=== PATIENT | female | born 1960 | race Caucasian/White ===

== ENCOUNTER 2017-08-20 12:51 | Emergency (ER) | payer OTHER ==
[2017-08-20 12:51] VITALS: BMI 24.7
[2017-08-20 13:01] VITALS: BP 114/51; PULSE 84; RESP 18; TEMP 99; O2SAT 100
[2017-08-20] MEDS ORDERED: Albuterol-Ipratrop 3 mg / 0.5 (3 ml) UD INH STA (13:36)
--- NOTE | 2017-08-20 13:38 | ED PDOC ---
HPI: CCC, URI, Sore Throat Time Seen by Provider: 08/20/17 13:16 Chief Complaint (Nursing): Cough, Cold, Congestion Chief Complaint (Provider): Cough, fever, chills History Per: Patient History/Exam Limitations: no limitations Onset/Duration Of Symptoms: Other (1 month) Additional Complaint(s): Patient is a 56 y/o female with a past medical history of asthma presenting to the emergency department for a productive cough ongoing intermittently for over a month. Also reports developing a fever and chills four days ago. Patient was seen by PMD and started taking Tamiflu two days ago with no significant relief of symptoms. Denies any other complaints. Of note, patient did receive flu shot this year. PCP: Dr. Alvarez Past Medical History Reviewed: Historical Data, Nursing Documentation, Vital Signs Vital Signs: Last Vital Signs Temp 99 F 08/20/17 12:59 Pulse 84 08/20/17 12:59 Resp 18 08/20/17 12:59 BP 114/51 L 08/20/17 12:59 Pulse Ox 100 08/20/17 14:21 - Medical History PMH: Arthritis (KNEES), Asthma - Surgical History Surgical History: No Surg Hx - Family History Family History: States: No Known Family Hx - Living Arrangements Living Arrangements: With Family - Social History Current smoker - smoking cessation education provided: No Alcohol: None Drugs: Denies - Home Medications Home Medications: Ambulatory Orders Medication Instructions Recorded Bronopol 250 mg PO DAILY 04/09/14 Calcium With Vit D 600 mg PO DAILY 04/09/14 Diosmiplex 630 mg PO DAILY 04/09/14 Menovin 1 tab PO DAILY 04/09/14 Mesalamine [Asacol HD 800mg] 800 mg PO DAILY 04/09/14 Omeprazole [Omeprazole D/R] 40 mg PO DAILY 04/09/14 Vitamin E Succinate [Alph-E-400] 400 iu PO DAILY 04/09/14 predniSONE 5 mg PO DAILY 04/09/14 Cyclobenzaprine HCl [Flexeril] 10 mg PO BID PRN #12 tab 01/14/15 Ibuprofen [Motrin Tab] 800 mg PO Q8H PRN #20 tab 01/14/15 Ibuprofen [Motrin Tab] 800 mg PO Q6H PRN #20 tab 03/04/15 Albuterol HFA [Ventolin HFA 90 1 puff IH ASDIR #1 unit 08/20/17 mcg/actuation (8 g)] Benzonatate 200 mg PO TID PRN #20 capsule 08/20/17 Levofloxacin [Levaquin] 500 mg PO DAILY #7 tablet 08/20/17 Prednisone 50 mg PO DAILY #5 tablet 08/20/17 - Allergies Allergies/Adverse Reactions: Allergies Allergy/AdvReac Type Severity Reaction Status Date / Time No Known Allergies Allergy Verified 08/20/17 12:58 Curb-65 Severity Score - CURB-65 Severity Score Confusion: No Respiratory Rate greater than/equal to 30: No Systolic BP <90 or Diastolic BP less than/equal 60mmHg: No Age >64: No Curb-65 Score: 0 Percentage 30-day mortality: 0.6% Review of Systems ROS Statement: Except As Marked, All Systems Reviewed And Found Negative Constitutional: Positive for: Fever (subjective), Chills Cardiovascular: Negative for: Chest Pain Respiratory: Positive for: Cough, Sputum (white), Wheezing Gastrointestinal: Negative for: Nausea, Vomiting Neurological: Negative for: Headache, Dizziness Physical Exam - Reviewed Nursing Documentation Reviewed: Yes Vital Signs Reviewed: Yes - Physical Exam Appears: Positive for: Non-toxic, No Acute Distress Head Exam: Positive for: ATRAUMATIC, NORMAL INSPECTION, NORMOCEPHALIC Skin: Positive for: Normal Color, Warm, Dry Eye Exam: Positive for: Normal appearance ENT: Negative for: Pharyngeal Erythema Neck: Positive for: Normal Cardiovascular/Chest: Positive for: Regular Rate, Rhythm Respiratory: Positive for: Wheezing (bilaterally). Negative for: Normal Breath Sounds, Accessory Muscle Use, Respiratory Distress Back: Negative for: L CVA Tenderness, R CVA Tenderness Extremity: Positive for: Normal ROM. Negative for: Pedal Edema Neurologic/Psych: Positive for: Alert, Oriented (x3) - ECG O2 Sat by Pulse Oximetry: 100 (RA) Pulse Ox Interpretation: Normal - Other Rad CXR X-Ray: Interpreted by Me, Viewed By Me X-Ray Interpretation: no infiltrate Nebulizer Treatments/Peak Flow - Duonebs Number of Bronchodilator Doses given?: 1 (duoneb) - Pre/Post Peak Flow Pre Treatment Peak Flow: 180 Post treatment Peak Flow: 250 - Steroid Treatment Steroid: Oral (prednisone rx) - Clinical Response Clinical Response: Improved Medical Decision Making Medical Decision Making: Time: 13:36 Initial impression: 56 y/o female with upper respiratory symptoms. Initial plan: Chest x-ray Albuterol 3 mL INH Motrin 600 mg PO Nebulizer treatment Patient feels better after nebulizer treatment. Prescriptions provided for Levaquin, Tessalon Perles, ventoin inhaler and prednisone. Patient was advised to continue with Tamiflu. Advised Tylenol or Advil for body aches, rest and fluids. Patient was instructed to follow up with primary doctor in 2-3 days. ~ Scribe Attestation: Documented by Aliya Batista, acting as a scribe for ROSIE Lerma. Provider Scribe Attestation: All medical record entries made by the Scribe were at my direction and personally dictated by me. I have reviewed the chart and agree that the record accurately reflects my personal performance of the history, physical exam, medical decision making, and the department course for this patient. I have also personally directed, reviewed, and agree with the discharge instructions and disposition. Disposition - Clinical Impression Clinical Impression: Flu-like symptoms - Patient ED Disposition Is Patient to be Admitted: No Counseled Patient/Family Regarding: Studies Performed, Diagnosis, Need For Followup, Rx Given - Disposition Referrals: [facility] [Outside] Disposition: Routine/Home Disposition Time: 14:19 Condition: STABLE Additional Instructions: Take [id number] Tylenol and Advil for body aches. Tylenol every 4 hours and Advil every 6 hours. Take prescription medications as directed. Continue Tamiflu until completion. Rest and drink plenty of fluids. Follow-up with primary doctor in 2-3 days. Prescriptions: Albuterol HFA [Ventolin HFA 90 mcg/actuation (8 g)] 1 puff IH ASDIR #1 unit Benzonatate 200 mg PO TID PRN #20 capsule PRN Reason: Cough Levofloxacin [Levaquin] 500 mg PO DAILY #7 tablet Prednisone 50 mg PO DAILY #5 tablet Instructions: Upper Respiratory Infection (ED), Cold Symptoms (ED) Forms: [employer] ([place]), [facility] ED School/Work Excuse
--- NOTE | 2017-08-20 14:16 | RAD ---
HISTORY: cough COMPARISON: No prior. TECHNIQUE: Chest PA and lateral FINDINGS: LUNGS: No active pulmonary disease. PLEURA: No significant pleural effusion identified. No pneumothorax apparent. CARDIOVASCULAR: No radiographic findings to suggest acute or significant cardiovascular disease. OSSEOUS STRUCTURES: No significant abnormalities. VISUALIZED UPPER ABDOMEN: Normal. OTHER FINDINGS: None. IMPRESSION: No active disease. Concordant results with the preliminary interpretation rendered by the emergency department physician procedure.
[2017-08-20] MEDS ORDERED: Albuterol-Ipratrop 3 mg / 0.5 (3 ml) UD ONE (14:28)
== END 2017-08-20 15:14 | disposition home or self-care (01) ==
LOC: H.ER 12:51
DX: J45.909 Unspecified asthma, uncomplicated (principal)